=== PATIENT | male | born 1945 | race Caucasian/White ===

== ENCOUNTER 2017-07-17 08:34 | Inpatient (IN) | payer MEDICARE, BC ==
[~2017-07-17] VITALS: Ht 167.6 cm; Wt 93.2 kg
[~2017-07-17 08:34] MED LIST: AFRIN30 ML; ALLOPURINOL300 M1 PO; ANORO ELLIPTA1 EAC1 INH; CELEBREX100 M1 PO; COUMADIN7.5 M1 PO; DICYCLOMINE HCL20 M1 PO; EMU OIL PO; FISH OIL 1,2001 EAC5 PO; FISH OIL 11000 MG/CA PO; FLOMAX0.4 M1 PO; GRANIX SC; KEFLEX500 M4 PO; MILK OF MAGNESIA PO; MIRALAX17 G2 PO; MORPHINE SU15 MG/TAB PO; MS CONTIN15 M1 PO; NEURONTIN; NORCO 5-325 TA1 EACH PO; PREDNISONE10 M1 PO; PROAIR HFA8.5 GM INH; PROBIOTIC1 EAC6 PO; SENOKOT-S TABL1 EACH PO; VANCOMYCIN HCL125 M1 PO; XARELTO1 EACH; XARELTO20 M1 PO; [UNRECOGNIZED DRUG - OTHER] PO
[2017-07-17] MEDS ORDERED: OMEPRAZOLE20 M4 PO (09:25)
[2017-07-17] MEDS ORDERED: CARAFATE1 G2 PO (09:26)
[2017-07-17 09:49] LABS: BASO % 0.1 % (0-2); BASO ABSOLUTE COUNT 0.1 tho/cmm (0.0-0.2); HCT-HEMATOCRIT 28.1 % (36.0-53.5); HGB-HEMOGLOBIN 9.6 gm/dl (13.5-17.0); IMMATURE GRANULOCYTES ABSOLUTE 1.63 tho/cmm (0-0.03); IMMATURE GRANULOCYTES PERCENT 2.6 % (0-0.3); LYMPH % 3.1 % (20-45); LYMPH ABSOLUTE COUNT 1.9 tho/cmm (0.8-4.5); MCH (MEAN CORPUSCULAR HGB) 32.2 pg (28.0-32.0); MCHC MEAN CORPUSCULAR HGB CONC 34.2 % (32.0-36.0); MCV (MEAN CELL VOLUME) 94.3 fl (82.0-96.0); MEAN PLATELET VOLUME 10.1 cmc (9.4-12.4); MONO % 0.3 % (0-12); MONOCYTE ABSOLUTE COUNT 0.2 tho/cmm (0.0-1.2); NEUTROPHIL ABSOLUTE COUNT 58.4 tho/cmm (1.6-8.0); NEUTROPHILS % 93.9 % (40-80); PLATELET COUNT 542 tho/cmm (150-450); RED BLOOD COUNT 2.98 mil/cmm (4.40-5.70); RED CELL DISTRIBUTION WIDTH 16.3 % (12.4-16.4)
[2017-07-17 09:50] LABS: NEUTROPHIL-AUTOMATED 58.4 tho/cmm (1.6-8.0); WHITE BLOOD COUNT 62.2 tho/cmm (4.0-10.0)
[2017-07-17 10:04] LABS: ANION GAP 13 mmol/L (0-20); BLOOD UREA NITROGEN 20 mg/dl (6-24); CALCIUM 8.5 mg/dl (8.5-10.5); CARBON DIOXIDE-VENOUS 26 mmol/L (22-32); CHLORIDE 104 mmol/l (96-110); CREATININE 0.83 mg/dl (0.60-1.30); GLUCOSE 78 mg/dL (70-110); POTASSIUM 4.1 mmol/L (3.7-5.1); SODIUM 139 mmol/L (135-145); eGFR VALUE FOR BLACK >90 mL/Min
[2017-07-17 11:05] LABS: URINE BILIRUBIN NEGATIVE (NEG); URINE BLOOD NEGATIVE (NEG); URINE GLUCOSE (UA) NEGATIVE (NEG); URINE KETONE NEGATIVE (NEG); URINE LEUKOCYTE ESTERASE POSITIVE (NEG); URINE NITRITE NEGATIVE (NEG); URINE PROTEIN SMALL (NEG); URINE SPECIFIC GRAVITY 1.005 (1.003-1.030)
[2017-07-17 11:06] LABS: URINE APPEARANCE CLEAR; URINE COLOR YELLOW
[2017-07-17 11:19] LABS: URINE EPITHELIAL CELLS 0 /[HPF] (0-10); URINE RBC 0 /[HPF] (0-5)
[2017-07-17 11:58] LABS: PROCALCITONIN 0.15 ng/ml (0.05-0.09)
[2017-07-17 20:04] LABS: INR 1.8 INR (0.9-1.1); PROTHROMBIN TIME 21.2 SECONDS (9.0-13.6)
[2017-07-18 06:38] LABS: HCT-HEMATOCRIT 24.9 % (36.0-53.5); HGB-HEMOGLOBIN 8.5 gm/dl (13.5-17.0); MCH (MEAN CORPUSCULAR HGB) 32.3 pg (28.0-32.0); MCHC MEAN CORPUSCULAR HGB CONC 34.1 % (32.0-36.0); MCV (MEAN CELL VOLUME) 94.7 fl (82.0-96.0); RED BLOOD COUNT 2.63 mil/cmm (4.40-5.70); RED CELL DISTRIBUTION WIDTH 16.6 % (12.4-16.4)
[2017-07-18 06:45] LABS: BASO % 0.1 % (0-2); IMMATURE GRANULOCYTES ABSOLUTE 4.42 tho/cmm (0-0.03); IMMATURE GRANULOCYTES PERCENT 7.8 % (0-0.3); LYMPH % 2.5 % (20-45); LYMPH ABSOLUTE COUNT 1.4 tho/cmm (0.8-4.5); MONO % 0.4 % (0-12); MONOCYTE ABSOLUTE COUNT 0.2 tho/cmm (0.0-1.2); NEUTROPHIL ABSOLUTE COUNT 50.3 tho/cmm (1.6-8.0); NEUTROPHIL-AUTOMATED 50.3 tho/cmm (1.6-8.0); NEUTROPHILS % 89.2 % (40-80); WHITE BLOOD COUNT 56.4 tho/cmm (4.0-10.0)
[2017-07-18 06:48] LABS: ALB/GLOB RATIO 0.7 (0.8-2.0); ALBUMIN 2.3 g/dl (3.5-5.0); ALKALINE PHOSPHATASE 170 U/L (33-138); ALT/SGPT 26 U/L (12-78); ANION GAP 9 mmol/L (0-20); AST/SGOT 19 U/L (10-40); BILIRUBIN,TOTAL 0.3 mg/dl (0.0-1.5); BLOOD UREA NITROGEN 14 mg/dl (6-24); CARBON DIOXIDE-VENOUS 27 mmol/L (22-32); CHLORIDE 109 mmol/l (96-110); CREATININE 0.78 mg/dl (0.60-1.30); GLUCOSE 102 mg/dL (70-110); POTASSIUM 3.9 mmol/L (3.7-5.1); SODIUM 141 mmol/L (135-145); eGFR VALUE FOR BLACK >90 mL/Min
[2017-07-18 07:42] LABS: PLATELET COUNT 507 tho/cmm (150-450)
--- NOTE | 2017-07-18 19:04 | NUR ---
FLEETS ENEMEA ADMINISTERED
[2017-07-19 05:34] LABS: HCT-HEMATOCRIT 27.9 % (36.0-53.5); HGB-HEMOGLOBIN 9.5 gm/dl (13.5-17.0); MCH (MEAN CORPUSCULAR HGB) 32.1 pg (28.0-32.0); MCHC MEAN CORPUSCULAR HGB CONC 34.1 % (32.0-36.0); MCV (MEAN CELL VOLUME) 94.3 fl (82.0-96.0); MEAN PLATELET VOLUME 10.1 cmc (9.4-12.4); NEUTROPHIL-AUTOMATED 39.3 tho/cmm (1.6-8.0); RED BLOOD COUNT 2.96 mil/cmm (4.40-5.70); RED CELL DISTRIBUTION WIDTH 16.6 % (12.4-16.4)
[2017-07-19 05:46] LABS: IRON 203 ug/dl (49-181); IRON BINDING CAPACITY 233 ug/dl (250-450)
[2017-07-19 05:48] LABS: BASO % 0.2 % (0-2); BASO ABSOLUTE COUNT 0.1 tho/cmm (0.0-0.2); IMMATURE GRANULOCYTES ABSOLUTE 4.52 tho/cmm (0-0.03); IMMATURE GRANULOCYTES PERCENT 9.8 % (0-0.3); LYMPH % 4.3 % (20-45); MONO % 0.8 % (0-12); MONOCYTE ABSOLUTE COUNT 0.4 tho/cmm (0.0-1.2); NEUTROPHIL ABSOLUTE COUNT 39.3 tho/cmm (1.6-8.0); NEUTROPHILS % 84.9 % (40-80); WHITE BLOOD COUNT 46.3 tho/cmm (4.0-10.0)
[2017-07-19 05:50] LABS: ANION GAP 13 mmol/L (0-20); BLOOD UREA NITROGEN 9 mg/dl (6-24); CALCIUM 8.5 mg/dl (8.5-10.5); CARBON DIOXIDE-VENOUS 25 mmol/L (22-32); CHLORIDE 108 mmol/l (96-110); CREATININE 0.77 mg/dl (0.60-1.30); FERRITIN 1034 ng/ml (22-388); GLUCOSE 92 mg/dL (70-110); SODIUM 142 mmol/L (135-145); eGFR VALUE FOR BLACK >90 mL/Min
[2017-07-19 06:47] LABS: PROCALCITONIN 0.53 ng/ml (0.05-0.09)
[2017-07-19 08:07] LABS: PLATELET COUNT 536 tho/cmm (150-450)
--- NOTE | 2017-07-19 09:57 | NUR ---
RN CALLED INTO ROOM BY PT @ [id number]. PT REPORTS "HE FEELS LIKE CRAP." ARMS TREMULOUS BILAT, T 37.1, DENIES FEELING NAUSEATED OR COLD, SKIN FEELS WARM. PT REPORTS ONLY GETTING APPROX 6 HRS OF SLEEP OR LESS IN THE PAST 48 HRS.
[2017-07-20 06:00] LABS: HCT-HEMATOCRIT 26.1 % (36.0-53.5); HGB-HEMOGLOBIN 8.8 gm/dl (13.5-17.0); MCH (MEAN CORPUSCULAR HGB) 31.7 pg (28.0-32.0); MCHC MEAN CORPUSCULAR HGB CONC 33.7 % (32.0-36.0); MCV (MEAN CELL VOLUME) 93.9 fl (82.0-96.0); NEUTROPHIL-AUTOMATED 30.2 tho/cmm (1.6-8.0); PLATELET COUNT 482 tho/cmm (150-450); RED BLOOD COUNT 2.78 mil/cmm (4.40-5.70); RED CELL DISTRIBUTION WIDTH 16.5 % (12.4-16.4)
[2017-07-20 06:07] LABS: BASO % 0.2 % (0-2); BASO ABSOLUTE COUNT 0.1 tho/cmm (0.0-0.2); IMMATURE GRANULOCYTES ABSOLUTE 2.56 tho/cmm (0-0.03); IMMATURE GRANULOCYTES PERCENT 7.3 % (0-0.3); LYMPH % 3.9 % (20-45); LYMPH ABSOLUTE COUNT 1.4 tho/cmm (0.8-4.5); MONO % 2.4 % (0-12); MONOCYTE ABSOLUTE COUNT 0.9 tho/cmm (0.0-1.2); NEUTROPHIL ABSOLUTE COUNT 30.2 tho/cmm (1.6-8.0); NEUTROPHILS % 86.2 % (40-80); WHITE BLOOD COUNT 35.1 tho/cmm (4.0-10.0)
[2017-07-20 06:08] LABS: ESR-ERYTHROCYTE SED RATE 71 mm/hr (0-20)
[2017-07-20 06:09] LABS: PHOSPHOROUS 3.2 mg/dl (2.5-4.9)
[2017-07-20 06:11] LABS: C-REACTIVE PROTEIN 1.5 mg/dl (0-0.9)
[2017-07-20 06:13] LABS: PROCALCITONIN 0.26 ng/ml (0.05-0.09)
[2017-07-21 07:16] LABS: BASO % 0.1 % (0-2); HCT-HEMATOCRIT 26.1 % (36.0-53.5); HGB-HEMOGLOBIN 8.9 gm/dl (13.5-17.0); IMMATURE GRANULOCYTES ABSOLUTE 0.05 tho/cmm (0-0.03); IMMATURE GRANULOCYTES PERCENT 0.4 % (0-0.3); LYMPH % 13.1 % (20-45); LYMPH ABSOLUTE COUNT 1.8 tho/cmm (0.8-4.5); MCH (MEAN CORPUSCULAR HGB) 31.8 pg (28.0-32.0); MCHC MEAN CORPUSCULAR HGB CONC 34.1 % (32.0-36.0); MCV (MEAN CELL VOLUME) 93.2 fl (82.0-96.0); MEAN PLATELET VOLUME 9.7 cmc (9.4-12.4); MONO % 7.9 % (0-12); MONOCYTE ABSOLUTE COUNT 1.1 tho/cmm (0.0-1.2); NEUTROPHIL ABSOLUTE COUNT 10.6 tho/cmm (1.6-8.0); NEUTROPHIL-AUTOMATED 10.6 tho/cmm (1.6-8.0); NEUTROPHILS % 78.5 % (40-80); PLATELET COUNT 451 tho/cmm (150-450); RED CELL DISTRIBUTION WIDTH 16.6 % (12.4-16.4)
[2017-07-21 07:25] LABS: WHITE BLOOD COUNT 13.5 tho/cmm (4.0-10.0)
[2017-07-21 07:26] LABS: ANION GAP 12 mmol/L (0-20); BLOOD UREA NITROGEN 18 mg/dl (6-24); C-REACTIVE PROTEIN 0.9 mg/dl (0-0.9); CALCIUM 8.3 mg/dl (8.5-10.5); CARBON DIOXIDE-VENOUS 27 mmol/L (22-32); CHLORIDE 107 mmol/l (96-110); CREATININE 0.75 mg/dl (0.60-1.30); GLUCOSE 104 mg/dL (70-110); POTASSIUM 3.8 mmol/L (3.7-5.1); SODIUM 142 mmol/L (135-145); eGFR VALUE FOR BLACK >90 mL/Min
[2017-07-21 10:36] LABS: PROCALCITONIN 0.12 ng/ml (0.05-0.09)
[2017-07-22 06:05] LABS: BASO % 0.2 % (0-2); EOS % 0.1 % (0-7); HCT-HEMATOCRIT 28.6 % (36.0-53.5); HGB-HEMOGLOBIN 9.6 gm/dl (13.5-17.0); IMMATURE GRANULOCYTES ABSOLUTE 0.05 tho/cmm (0-0.03); IMMATURE GRANULOCYTES PERCENT 0.5 % (0-0.3); LYMPH % 32.3 % (20-45); LYMPH ABSOLUTE COUNT 3.3 tho/cmm (0.8-4.5); MCH (MEAN CORPUSCULAR HGB) 31.5 pg (28.0-32.0); MCHC MEAN CORPUSCULAR HGB CONC 33.6 % (32.0-36.0); MCV (MEAN CELL VOLUME) 93.8 fl (82.0-96.0); MEAN PLATELET VOLUME 9.7 cmc (9.4-12.4); MONO % 12.7 % (0-12); MONOCYTE ABSOLUTE COUNT 1.3 tho/cmm (0.0-1.2); NEUTROPHIL ABSOLUTE COUNT 5.5 tho/cmm (1.6-8.0); NEUTROPHIL-AUTOMATED 5.5 tho/cmm (1.6-8.0); NEUTROPHILS % 54.2 % (40-80); PLATELET COUNT 398 tho/cmm (150-450); RED BLOOD COUNT 3.05 mil/cmm (4.40-5.70); RED CELL DISTRIBUTION WIDTH 16.4 % (12.4-16.4); WHITE BLOOD COUNT 10.2 tho/cmm (4.0-10.0)
[2017-07-22 06:23] LABS: ALBUMIN 2.8 g/dl (3.5-5.0); ANION GAP 12 mmol/L (0-20); BLOOD UREA NITROGEN 17 mg/dl (6-24); C-REACTIVE PROTEIN 0.6 mg/dl (0-0.9); CALCIUM 8.5 mg/dl (8.5-10.5); CARBON DIOXIDE-VENOUS 27 mmol/L (22-32); CHLORIDE 107 mmol/l (96-110); CREATININE 0.77 mg/dl (0.60-1.30); GLUCOSE 85 mg/dL (70-110); PHOSPHOROUS 3.8 mg/dl (2.5-4.9); POTASSIUM 3.5 mmol/L (3.7-5.1); SODIUM 142 mmol/L (135-145); eGFR VALUE FOR BLACK >90 mL/Min
[2017-07-22 08:01] LABS: PROCALCITONIN 0.09 ng/ml (0.05-0.09)
[2017-07-22] MEDS ORDERED: IPRATROPIU0.2 MG/1 M INH (15:55)
[2017-07-22] MEDS ORDERED: IPRATROPIU0.2 MG/1 M (15:55)
[2017-07-22] MEDS ORDERED: ATIVAN1 M2 PO (15:59)
[2017-07-22] MEDS ORDERED: AMBIEN5 M1 PO (16:00)
== END 2017-07-22 16:50 | DRG 871 ==
LOC: EDMED 08:34 → 5WF 14:56 → EMR2 14:56 → 5WF 16:47
PROVIDERS: Emergency Medicine; Internal Medicine; Internal Medicine Infectious Disease; ADMIT Family Medicine
DX: A41.9 Sepsis, unspecified organism (principal); J18.9 Pneumonia, unspecified organism; J96.01 Acute respiratory failure with hypoxia; C78.6 Secondary malignant neoplasm of retroperitoneum and peritoneum; J44.0 Chronic obstructive pulmonary disease with (acute) lower respiratory infection; C79.51 Secondary malignant neoplasm of bone; C77.1 Secondary and unspecified malignant neoplasm of intrathoracic lymph nodes; C78.7 Secondary malignant neoplasm of liver and intrahepatic bile duct; C7A.1 Malignant poorly differentiated neuroendocrine tumors; D64.9 Anemia, unspecified; C79.70 Secondary malignant neoplasm of unspecified adrenal gland; I82.501 Chronic embolism and thrombosis of unspecified deep veins of right lower extremity; G47.34 Idiopathic sleep related nonobstructive alveolar hypoventilation; Y95 Nosocomial condition; Z79.02 Long term (current) use of antithrombotics/antiplatelets; M19.90 Unspecified osteoarthritis, unspecified site; Z87.891 Personal history of nicotine dependence; Z79.891 Long term (current) use of opiate analgesic; Z79.899 Other long term (current) drug therapy; Z86.19 Personal history of other infectious and parasitic diseases; K59.00 Constipation, unspecified; R65.20 Severe sepsis without septic shock; G47.00 Insomnia, unspecified
CPT/HCPCS: C8929; J1447; J1940; J1956; J2543; J2920; J3370; J7030; J7512; Q9967